=== PATIENT | female | born 1995 | race African-American/Black ===

== ENCOUNTER 2017-08-04 23:17 | Emergency (ER) | payer SELFPAY ==
[2017-08-04 23:21] VITALS: BP 119/58; BMI 35.3
== END 2017-08-05 00:25 | disposition left against medical advice (07) ==
LOC: ER 23:17
DX: M54.89 Other dorsalgia (principal)
CPT/HCPCS: 99281

== ENCOUNTER 2017-12-14 16:27 | Emergency (ER) | payer SELFPAY ==
[2017-12-14 16:30] VITALS: BP 118/64; BMI 33.6
--- NOTE | 2017-12-14 17:55 | DR.GENAD ---
HPI - HPI Comment HPI Comment: PATIENT DOING FINE. PATIENT WAS REFER TO PCP FOR FURTHER EVALUATION. - Complaint/Symptoms Chief Complaint Doctors Comments: PATIENT SAID HEARD SOMEONE SHE WAS INTIMATE WITH HAVE STD. SO DYSURIA OR VAGINAL DISCHARGE. Chief Complaint:: WANTS TO GET CHECKED FOR STD'S BECAUSE OF RUMORS - Nurses notes reviewed Nurses Notes Review: Yes - Source History Provided: Patient - Mode of Arrival Mode of Arrival: Ambulatory - Timing Onset of Chief Complaint: 12/14/17 Came on: Suddenly - Duration Duration: Constant Duration: Minutes - Severity Severity: None PMH - PMH Past Medical History: No Past Surgical History: No - Family History History of Family Medical Conditions: Yes Family Medical History: Hypertension - Social History Does any household member use tobacco: No Alcohol Use: None Do you use any recreational Drugs:: No Lives With: Family Lives Where: Home - infectious screening In the last 2 months have you had wt loss of >10#?: NO Have you had fever, night sweats or hemotysis?: No Have you traveled outside the country in the last 6 months?: No Isolation: Standard PE - Vital Signs Vitals: Temperature 98.4 F Pulse Rate 85 Respiratory Rate 20 Blood Pressure 118/64 O2 Sat by Pulse Oximetry 99 - Diagnosis Discharge Problem: Patient requested diagnostic testing - Discharge Plan Disposition: 01 HOME, SELF-CARE Condition: Stable - Follow ups/Referrals Follow ups/Referrals: Anupama LOVEc [Primary Care Provider] - 3 days - Instructions Instructions: Sexually Transmitted Disease, [id number] Additional Instructions: RETURN TO ED IF WORSE.
== END 2017-12-14 17:54 | disposition home or self-care (01) ==
LOC: ER 16:41
DX: Z11.3 Encounter for screening for infections with a predominantly sexual mode of transmission (principal)
CPT/HCPCS: 99281; 99282